=== PATIENT | female | born 1950 ===

== ENCOUNTER 2017-12-03 21:07 | Inpatient (IN) ==
[2017-12-03] MEDS ORDERED: ONDANSETRON 4 MG/2 ML VIAL IV PRN (23:21)
[2017-12-04] MEDS: SODIUM CHLORIDE 0.9% 1,000 ML IV SCH ×2 (00:42→21:20)
[2017-12-04 04:05] LABS: Basophils # 0.1 10*3/uL (0.0-0.2); Basophils % 0.7 % (0.0-0.8); Eosinophils # 0.3 10*3/uL (0.0-0.87); Eosinophils % 4.1 % (0.00-10.9); Hematocrit 37.8 VOL% (35.7-47.0); Hemoglobin 12.7 GM/DL (12.0-16.0); Immature Granulocytes % 0.6 %; Immature Granulocytes Absolute 0.04 #; Lymphocytes # 2.5 10*3/uL (1.4-4.0); Mean Corpuscular HGB Conc 33.6 GM/DL (32-36); Mean Corpuscular Hemoglobin 32 PG (27-34); Mean Corpuscular Volume 94.7 FL (87-102); Mean Platelet Volume 10.9 FL (9.6-12.0); Monocytes # 0.5 10*3/uL (0.11-0.8); Monocytes % 6.6 % (1.7-12.7); Neutrophils # 3.8 10*3/uL (1.4-7.4); Platelet Count 203 T/CUMM (130-400); Red Blood Count 3.99 MC/CUMM (3.8-5.5); Red Cell Distribution Width 14.1 % (9.3-17.3); White Blood Count 7.1 T/CUMM (4-12)
[2017-12-04 04:30] LABS: Bilirubin,Total 0.4 MG/DL (0.2-1.0); Calcium 8.3 MG/DL (8.5-10.1); Osmolality,Calculated 299.3 MOS/KG (273-304); Potassium 3.5 MMOL/L (3.5-5.1); Risk Ratio 4.24; Thyroid Stimulating Hormone 5.38 uIU/ml (0.358-3.74); VLDL CHOLESTEROL 29.8 MG/DL
[2017-12-04] MEDS: LEVOTHYROXINE 50 MCG TABLET PO SCH (06:53)
[2017-12-04] MEDS: PANTOPRAZOLE 40 MG TABLET PO SCH (08:47)
[2017-12-04] MEDS ORDERED: LISINOPRIL 20 MG TABLET PO SCH (09:00)
[2017-12-04] MEDS ORDERED: LISINOPRIL 10 MG TABLET PO SCH (09:22)
[2017-12-04] MEDS: METOPROLOL TARTRATE 25 MG TABLET PO SCH ×2 (10:00→21:20)
[2017-12-04] MEDS ORDERED: TRAVOPROST 0.004% OPH SOLN 2.5 ML BOTTLE BOTH EYES SCH (21:00)
[2017-12-04] MEDS: APIXABAN 5 MG TABLET PO SCH (21:20)
[2017-12-05] MEDS: SODIUM CHLORIDE 0.9% 1,000 ML IV SCH (02:01)
[2017-12-05 04:14] LABS: Basophils % 0.6 % (0.0-0.8); Eosinophils # 0.3 10*3/uL (0.0-0.87); Eosinophils % 4.8 % (0.00-10.9); Hematocrit 35.3 VOL% (35.7-47.0); Hemoglobin 11.7 GM/DL (12.0-16.0); Immature Granulocytes % 0.5 %; Immature Granulocytes Absolute 0.03 #; Lymphocytes # 2.4 10*3/uL (1.4-4.0); Lymphocytes % 36.7 % (21.3-54.2); Mean Corpuscular HGB Conc 33.1 GM/DL (32-36); Mean Corpuscular Hemoglobin 31 PG (27-34); Mean Corpuscular Volume 94.6 FL (87-102); Mean Platelet Volume 10.8 FL (9.6-12.0); Monocytes # 0.5 10*3/uL (0.11-0.8); Monocytes % 7.2 % (1.7-12.7); Neutrophils # 3.3 10*3/uL (1.4-7.4); Neutrophils % 50.2 % (38.7-73.9); Platelet Count 172 T/CUMM (130-400); Red Blood Count 3.73 MC/CUMM (3.8-5.5); Red Cell Distribution Width 14.5 % (9.3-17.3); White Blood Count 6.5 T/CUMM (4-12)
[2017-12-05 04:36] LABS: Calcium 7.9 MG/DL (8.5-10.1); Osmolality,Calculated 294.6 MOS/KG (273-304); Potassium 3.7 MMOL/L (3.5-5.1)
[2017-12-05] MEDS: LEVOTHYROXINE 50 MCG TABLET PO SCH (06:19)
[2017-12-05] MEDS ORDERED: ASCORBIC ACID 500 MG TABLET PO SCH (09:00)
[2017-12-05] MEDS: PANTOPRAZOLE 40 MG TABLET PO SCH (09:19)
[2017-12-05] MEDS: METOPROLOL TARTRATE 25 MG TABLET PO SCH (09:19)
[2017-12-05] MEDS: APIXABAN 5 MG TABLET PO SCH (09:20)
[2017-12-05 12:00] VITALS: BP 127/58
== END 2017-12-05 14:30 | disposition home or self-care (01) | DRG 309 ==
LOC: N.TELEN 23:19 → INTOOBSV 23:19 → SUATTDRO 23:19
PROVIDERS: ADMIT Internal Medicine; ATTEND Internal Medicine

== ENCOUNTER 2020-05-21 11:41 | Inpatient (IN) ==
[2020-05-21] MEDS ORDERED: GLUCAGON 1 MG VIAL IM PRN (14:50)
[2020-05-21] MEDS ORDERED: DEXTROSE 50% 25 GM/50 ML VIAL IV PRN (14:50)
[2020-05-21] MEDS ORDERED: hydrALAZINE 20 MG/1 ML VIAL IV PRN (14:50)
[2020-05-21] MEDS ORDERED: ONDANSETRON 4 MG/2 ML VIAL IV PRN (14:56)
[2020-05-21] MEDS: SODIUM CHLORIDE 0.9% 1,000 ML IV SCH ×2 (15:08→23:00)
[2020-05-21] MEDS: ENOXAPARIN 120 MG/0.8 ML SYRINGE SUBCUT SCH (15:08)
[2020-05-21] MEDS: METOPROLOL TARTRATE 25 MG TABLET PO SCH (21:03)
[2020-05-21] MEDS: ASCORBIC ACID 500 MG TABLET PO SCH (21:03)
[2020-05-21] MEDS: TRAVOPROST 0.004% OPH SOLN 2.5 ML BOTTLE BOTH EYES SCH (21:03)
[2020-05-22] MEDS: ENOXAPARIN 120 MG/0.8 ML SYRINGE SUBCUT SCH ×2 (03:41→15:21)
[2020-05-22 05:30] LABS: Basophils % 0.2 % (0.0-0.8); Eosinophils # 0.2 10*3/uL (0.0-0.87); Eosinophils % 1.9 % (0.00-10.9); Hematocrit 38.9 VOL% (35.7-47.0); Hemoglobin 12.9 GM/DL (12.0-16.0); Immature Granulocytes % 0.5 %; Immature Granulocytes Absolute 0.05 #; Lymphocytes # 1.3 10*3/uL (1.4-4.0); Mean Corpuscular HGB Conc 33.2 GM/DL (32-36); Mean Corpuscular Volume 91.3 FL (87-102); Mean Platelet Volume 11.5 FL (9.6-12.0); Monocytes % 5.6 % (1.7-12.7); Neutrophils % 79.8 % (38.7-73.9); Platelet Count 164 T/CUMM (130-400); Red Blood Count 4.26 MC/CUMM (3.8-5.5); Red Cell Distribution Width 14.5 % (9.3-17.3); White Blood Count 10.6 T/CUMM (4-12)
[2020-05-22 05:57] LABS: Albumin 2.9 G/DL (3.4-5.0); Bilirubin,Direct 0.22 MG/DL (0.0-0.20); Bilirubin,Indirect 1.6 MG/DL (0.0-1.0); Bilirubin,Total 1.8 MG/DL (0.2-1.0); Total Protein 6.3 G/DL (5.0-7.5)
[2020-05-22 06:05] LABS: Osmolality,Calculated 285.8 MOS/KG (273-304); Potassium 3.2 MMOL/L (3.5-5.1); Risk Ratio 3.53
[2020-05-22] MEDS: LEVOTHYROXINE 75 MCG TABLET PO SCH (06:34)
[2020-05-22] MEDS: SODIUM CHLORIDE 0.9% 1,000 ML IV SCH ×2 (08:39→15:58)
[2020-05-22] MEDS: POTASSIUM CHLORIDE 10 MEQ TABLET PO SCH (08:39)
[2020-05-22] MEDS: PANTOPRAZOLE 40 MG TABLET PO SCH (08:39)
[2020-05-22] MEDS: ASCORBIC ACID 500 MG TABLET PO SCH ×2 (08:39→21:19)
[2020-05-22] MEDS: METOPROLOL TARTRATE 25 MG TABLET PO SCH ×2 (08:39→21:19)
[2020-05-22] MEDS: TRAVOPROST 0.004% OPH SOLN 2.5 ML BOTTLE BOTH EYES SCH (21:20)
[2020-05-23] MEDS: SODIUM CHLORIDE 0.9% 1,000 ML IV SCH ×3 (01:20→20:50)
[2020-05-23] MEDS: ENOXAPARIN 120 MG/0.8 ML SYRINGE SUBCUT SCH ×2 (03:51→14:40)
[2020-05-23 05:08] LABS: Basophils % 0.2 % (0.0-0.8); Eosinophils # 0.2 10*3/uL (0.0-0.87); Eosinophils % 1.2 % (0.00-10.9); Hematocrit 40.5 VOL% (35.7-47.0); Hemoglobin 13.6 GM/DL (12.0-16.0); Immature Granulocytes % 0.7 %; Immature Granulocytes Absolute 0.09 #; Lymphocytes # 1.3 10*3/uL (1.4-4.0); Lymphocytes % 10.2 % (21.3-54.2); Mean Corpuscular HGB Conc 33.6 GM/DL (32-36); Mean Platelet Volume 11.3 FL (9.6-12.0); Neutrophils % 80.7 % (38.7-73.9); Platelet Count 148 T/CUMM (130-400); Red Cell Distribution Width 14.5 % (9.3-17.3); White Blood Count 12.9 T/CUMM (4-12)
[2020-05-23 05:30] LABS: Calcium 7.9 MG/DL (8.5-10.1); Osmolality,Calculated 281.1 MOS/KG (273-304); Potassium 3.5 MMOL/L (3.5-5.1)
[2020-05-23] MEDS: LEVOTHYROXINE 75 MCG TABLET PO SCH (06:52)
[2020-05-23 08:52] LABS: Albumin 2.7 G/DL (3.4-5.0); Bilirubin,Total 1.3 MG/DL (0.2-1.0); Calcium 7.9 MG/DL (8.5-10.1); Potassium 3.6 MMOL/L (3.5-5.1); Total Protein 6.3 G/DL (5.0-7.5)
[2020-05-23] MEDS: METOPROLOL TARTRATE 25 MG TABLET PO SCH ×2 (10:13→20:50)
[2020-05-23] MEDS: POTASSIUM CHLORIDE 10 MEQ TABLET PO SCH (10:13)
[2020-05-23] MEDS: PANTOPRAZOLE 40 MG TABLET PO SCH (10:14)
[2020-05-23] MEDS: ASCORBIC ACID 500 MG TABLET PO SCH ×2 (10:16→20:50)
[2020-05-23] MEDS: TRAVOPROST 0.004% OPH SOLN 2.5 ML BOTTLE BOTH EYES SCH (20:50)
[2020-05-24] MEDS: MORPHINE 4 MG/1 ML VIAL IV PRN (00:03)
[2020-05-24] MEDS: ENOXAPARIN 120 MG/0.8 ML SYRINGE SUBCUT SCH ×2 (03:08→14:42)
[2020-05-24 04:38] LABS: Albumin 2.5 G/DL (3.4-5.0); Bilirubin,Total 1.5 MG/DL (0.2-1.0); Calcium 7.9 MG/DL (8.5-10.1); Osmolality,Calculated 282.1 MOS/KG (273-304); Potassium 3.9 MMOL/L (3.5-5.1)
[2020-05-24] MEDS: LEVOTHYROXINE 75 MCG TABLET PO SCH (09:58)
[2020-05-24] MEDS: METOPROLOL TARTRATE 25 MG TABLET PO SCH ×2 (10:00→20:30)
[2020-05-24] MEDS: ASCORBIC ACID 500 MG TABLET PO SCH ×2 (10:00→20:31)
[2020-05-24] MEDS: PANTOPRAZOLE 40 MG TABLET PO SCH (10:00)
[2020-05-24] MEDS: POTASSIUM CHLORIDE 10 MEQ TABLET PO SCH (10:00)
[2020-05-24] MEDS ORDERED: TISSUE ADHESIVE 1 EACH APPLICATOR TOP ONE (11:09)
[2020-05-24] MEDS ORDERED: BUPIVACAINE MPF 0.25% 30 ML VIAL ONE (11:09)
[2020-05-24] MEDS ORDERED: LIDOCAINE 1%/EPI INJ 20 ML VIAL ONE (11:09)
[2020-05-24] MEDS: TRAVOPROST 0.004% OPH SOLN 2.5 ML BOTTLE BOTH EYES SCH (20:31)
[2020-05-25] MEDS: SODIUM CHLORIDE 0.9% 1,000 ML IV SCH ×2 (06:30→07:00)
[2020-05-25] MEDS: LEVOTHYROXINE 75 MCG TABLET PO SCH (06:30)
[2020-05-25] MEDS ORDERED: TISSUE ADHESIVE 1 EACH APPLICATOR TOP ONE (08:54)
[2020-05-25] MEDS ORDERED: BUPIVACAINE MPF 0.25% 30 ML VIAL ONE (08:54)
[2020-05-25] MEDS ORDERED: LIDOCAINE 1%/EPI INJ 20 ML VIAL ONE (08:55)
[2020-05-25] MEDS: ASCORBIC ACID 500 MG TABLET PO SCH ×2 (09:00→20:39)
[2020-05-25] MEDS: PANTOPRAZOLE 40 MG TABLET PO SCH (09:00)
[2020-05-25] MEDS: POTASSIUM CHLORIDE 10 MEQ TABLET PO SCH (09:00)
[2020-05-25] MEDS: METOPROLOL TARTRATE 25 MG TABLET PO SCH ×2 (09:00→20:39)
[2020-05-25] MEDS ORDERED: fentaNYL 100 MCG/2 ML VIAL ONE (09:21)
[2020-05-25] MEDS ORDERED: ceFAZolin 1,000 MG VIAL ONE (09:22)
[2020-05-25] MEDS ORDERED: propofoL 200 MG/20 ML VIAL IV ONE (09:57)
[2020-05-25] MEDS ORDERED: ONDANSETRON 4 MG/2 ML VIAL ONE (09:57)
[2020-05-25] MEDS ORDERED: SUCCINYLCHOLINE 200 MG/10 ML VIAL ONE (09:57)
[2020-05-25] MEDS ORDERED: SEVOFLURANE 1 UNIT/15 MINUTE INH ONE ×4 (09:57→10:49)
[2020-05-25] MEDS ORDERED: ETOMIDATE 40 MG/20 ML VIAL IV ONE (09:57)
[2020-05-25] MEDS ORDERED: DEXAMETHASONE 4 MG/1 ML VIAL ONE (09:57)
[2020-05-25] MEDS ORDERED: LIDOCAINE 2% 5 ML VIAL ONE (09:57)
[2020-05-25] MEDS ORDERED: ROCURONIUM 50 MG/5 ML VIAL IV ONE (09:57)
[2020-05-25] MEDS ORDERED: LACTATED RINGERS 1,000 ML IV ONE (10:49)
[2020-05-25] MEDS ORDERED: ACETAMINOPHEN 1,000 MG/100 ML VIAL IV ONE (10:51)
[2020-05-25] MEDS: TRAVOPROST 0.004% OPH SOLN 2.5 ML BOTTLE BOTH EYES SCH (20:39)
[2020-05-26] MEDS: MORPHINE 4 MG/1 ML VIAL IV PRN ×2 (00:14→13:01)
[2020-05-26 05:43] LABS: Basophils % 0.2 % (0.0-0.8); Eosinophils % 0.4 % (0.00-10.9); Hematocrit 36.7 VOL% (35.7-47.0); Hemoglobin 12.1 GM/DL (12.0-16.0); Immature Granulocytes % 0.4 %; Immature Granulocytes Absolute 0.04 #; Lymphocytes # 1.6 10*3/uL (1.4-4.0); Lymphocytes % 17.6 % (21.3-54.2); Mean Corpuscular Volume 92.2 FL (87-102); Mean Platelet Volume 11.4 FL (9.6-12.0); Monocytes % 6.2 % (1.7-12.7); Neutrophils % 75.2 % (38.7-73.9); Platelet Count 205 T/CUMM (130-400); Red Blood Count 3.98 MC/CUMM (3.8-5.5); Red Cell Distribution Width 14.1 % (9.3-17.3); White Blood Count 9.3 T/CUMM (4-12)
[2020-05-26 06:08] LABS: Albumin 2.3 G/DL (3.4-5.0); Bilirubin,Direct 0.23 MG/DL (0.0-0.20); Bilirubin,Indirect 0.7 MG/DL (0.0-1.0); Bilirubin,Total 0.9 MG/DL (0.2-1.0); Calcium 8.2 MG/DL (8.5-10.1); Osmolality,Calculated 285.7 MOS/KG (273-304); Total Protein 5.9 G/DL (5.0-7.5)
[2020-05-26 06:17] LABS: INR 1.1; PT Patient Result 11.6 SECS (9.8-11.9)
[2020-05-26] MEDS: LEVOTHYROXINE 75 MCG TABLET PO SCH (07:07)
[2020-05-26] MEDS ORDERED: LACTATED RINGERS 1,000 ML IV SCH (08:00)
[2020-05-26] MEDS ORDERED: INDOMETHACIN SUPP 50 MG SUPP RECTAL ONE (08:00)
[2020-05-26] MEDS: SODIUM CHLORIDE 0.9% 1,000 ML IV SCH (08:07)
[2020-05-26] MEDS: POTASSIUM CHLORIDE RIDER 10 MEQ in PREMIX 1 EACH IV SCH ×2 (08:20→09:45)
[2020-05-26] MEDS: POTASSIUM CHLORIDE 10 MEQ TABLET PO SCH (08:23)
[2020-05-26] MEDS: METOPROLOL TARTRATE 25 MG TABLET PO SCH ×2 (08:23→21:31)
[2020-05-26] MEDS: ASCORBIC ACID 500 MG TABLET PO SCH ×2 (08:24→21:31)
[2020-05-26] MEDS: PANTOPRAZOLE 40 MG TABLET PO SCH (08:24)
[2020-05-26] MEDS ORDERED: POTASSIUM CHLORIDE 20 MEQ TABLET PO ONE (10:30)
[2020-05-26] MEDS: ENOXAPARIN 120 MG/0.8 ML SYRINGE SUBCUT SCH (15:00)
[2020-05-26] MEDS: TRAVOPROST 0.004% OPH SOLN 2.5 ML BOTTLE BOTH EYES SCH (21:31)
[2020-05-27] MEDS: SODIUM CHLORIDE 0.9% 1,000 ML IV SCH (02:44)
[2020-05-27] MEDS: ENOXAPARIN 120 MG/0.8 ML SYRINGE SUBCUT SCH (03:46)
[2020-05-27] MEDS: LEVOTHYROXINE 75 MCG TABLET PO SCH (06:32)
[2020-05-27] MEDS: POTASSIUM CHLORIDE 10 MEQ TABLET PO SCH (09:00)
[2020-05-27] MEDS: ASCORBIC ACID 500 MG TABLET PO SCH (09:00)
[2020-05-27] MEDS: METOPROLOL TARTRATE 25 MG TABLET PO SCH (09:00)
[2020-05-27] MEDS: PANTOPRAZOLE 40 MG TABLET PO SCH (09:00)
[2020-05-27 12:02] VITALS: BP 142/88
[2020-05-27] MEDS ORDERED: POTASSIUM CHLORIDE 20 MEQ TABLET PO ONE ×2 (12:02→14:00)
[2020-05-27] MEDS ORDERED: POTASSIUM CHLORIDE 20 MEQ TABLET PO SCH (14:00)
== END 2020-05-27 14:20 | disposition home or self-care (01) | DRG 418 ==
LOC: N.3E → SUATTDRO 14:04
PROVIDERS: ADMIT Internal Medicine; ATTEND Internal Medicine
PROC: LAPCHOL (2020-05-24 14:05)